=== PATIENT | female | born 1960 | race Caucasian/White ===

== ENCOUNTER → 2017-03-22 | Day surgery (SDC) | payer OTHER ==
--- NOTE | 2017-03-19 12:08 | MH ---
cc: DIMA VELÁZQUEZ M.D. DATE OF ADMISSION: 03/22/2017 CHIEF COMPLAINT: Menorrhagia. HISTORY OF PRESENT ILLNESS: The patient is a 56-year-old white female, G2, P2 with a 6 to 12 months history of much heavier periods this year. No breakthrough bleeding, the periods are not longer then are just significantly heavier. Workup in the office revealed an endometrial biopsy that suggested an endometrial polyp and the recommendations are to have definitive treatment with a MyoSure D&C and the patient would like to proceed with that. PAST MEDICAL HISTORY: Breast cancer in 2010 PAST SURGICAL HISTORY 1. Mastectomy 2. She had an exploratory laparotomy with salpingectomy for ectopic A section SOCIAL HISTORY No tobacco, one drinks per day. No drug use. She is and a business personnel clerks supervisor. FAMILY HISTORY: 1. Metastatic bone cancer 2. Breast cancer. 3. Dementia. GYNECOLOGY HISTORY No abnormal Pap's. No history of STDs. OBSTETRICAL HISTORY Three pregnancies one full term delivery via , one termination and one ectopic. PHYSICAL EXAMINATION: VITAL SIGNS: Her weight is 140, height 5'2", blood pressure 120/74 and pulse of 70. BREASTS: Without masses, nodes or discharge. CHEST: Clear to auscultation bilaterally. CARDIAC: Irregular rate and rhythm without murmur or gallop. ABDOMEN: Soft, nontender, nondistended. No hepatosplenomegaly. No CVA tenderness. No hernias. PELVIC EXAMINATION: The vulva, vagina, normal external female genitalia without lesions. Vaginal vault without lesions. Cervix without lesions. Uterus palpates normal size. It is nontender. No adnexal masses LABORATORY FINDINGS: Laboratory values on the patient are as I discussed in the history of present illness. ASSESSMENT AND PLAN: Includes menorrhagia with a biopsy suspicious for polyps. Plan will be for a MyoSure D&C. MD WOOD Andersen/ /11:47 AM /11:53 AM
[~2017-03-22] VITALS: Ht 157.5 cm; Wt 67.2 kg
[~2017-03-22] MED LIST: ACETAMINOPHEN 1000 MG/100 ML VIAL IV ONE; APREPITANT 40 MG CAP ONE; CETI10 PO; CHLORHEXIDINE GLUCONATE 2 % 1 PACK (2 CLOTHS) TOPICAL PRN; DEXAMETHASONE SOD PHOS 4 MG/ML VIAL ONE; DEXTROSE 5% IV PUSH PRN; DICLOFENAC SODIUM 37.5 MG/ML VIAL IV PUSH ONE; FAMOTIDINE 20 MG/2 ML VIAL ONE; INSULIN HUMAN REGULAR 1,000 UNITS/10 ML VIAL SQ PRN; KETOROLAC TROMETHAMINE 30 MG/ML (IVP) VIAL IV PUSH ONE; LACTATED RINGER'S 1000 ML IV PRN; LEVO25TA4 PO; LIDOCAINE 1%/EPINEPHrine 1:100,000 SOLN 20 ML VIAL ONE; METOPROLOL TARTRATE 25 MG TAB PO PRN; MIDAZOLAM HCL 2 MG/2 ML VIAL ONE; MONT10TA4 PO; ONDANSETRON HCL 4 MG/2 ML VIAL IV PUSH ONE; ONDANSETRON HCL 4 MG/2 ML VIAL ONE; ONDANSETRON IV PUSH PRN; PROPOFOL 200 MG/20 ML AMP IV ONE; SODIUM CHLORID 0.9% 500 ML IV PRN; VITA500T49 PO; WATER IV PUSH PRN; fentaNYL CITRATE 250 MCG/5 ML AMP ONE; oxyCODONE/ACETAMINOPHEN 5 MG/325 MG TAB PO PRN
[2017-03-22 06:54] VITALS: BP 116/73; PULSE 63; RESP 20; TEMP 98.3; O2SAT 100
[2017-03-22 08:04] LABS: BETA HCG QUANT LESS THAN 1 MIU/ML (0-5)
[2017-03-22 10:05] VITALS: BP 109/64; PULSE 63; RESP 16; TEMP 97.9; O2SAT 100
--- NOTE | 2017-03-22 14:41 | EKG ---
Date Performed: 03/22/2017 Time Performed: 07:01:02 PTAGE: 56 years EKG: Sinus rhythm LOW QRS VOLTAGE IN PRECORDIAL LEADS Compared to prior tracing no significant change BORDERLINE ECG PREVIOUS TRACING : 07/21/2012 07.01 DOCTOR: Manny Che Interpretating Date/Time 03/22/2017 14:39:17
--- NOTE | 2017-03-23 12:15 | MP ---
cc: DIMA VELÁZQUEZ M.D. DATE OF SURGERY: 03/22/2017 PREOPERATIVE DIAGNOSIS Menorrhagia with suspected polyp on endometrial biopsy. POSTOPERATIVE DIAGNOSIS Menorrhagia with suspected polyp on endometrial biopsy. PROCEDURE PERFORMED MyoSure dilatation and curettage. OPERATING SURGEON Dr. Dima Velázquez. ANESTHESIA General by facemask. FINDINGS IN SURGERY Included two endometrial polyps noted. No other findings. COMPLICATIONS None. BLOOD LOSS Minimal. PROCEDURE IN DETAIL After proper consents were obtained, the patient was taken to the operating room where general by facemask anesthesia was applied. She was then placed in dorsolithotomy position, sterilely prepped and draped. A weighted speculum was placed in her vaginal vault. The anterior lip of the cervix was grasped with a single-tooth tenaculum. Uterus was sounded to about 7 cm and then the cervix was serially dilated with Elsi dilators up to about #22. We then placed the hysteroscope using normal saline as the distending medium and inspected the cavity which revealed two polyps, one in the right cornual region and one coming from the anterior wall. We used our MyoSure device to remove that under direct visualization without any difficulty. Once we were done the cavity was entirely empty. We removed our instruments. Counts were correct. Hemostasis was assured and the patient was stable to the recovery room. MD WOOD Andersen/TLL /8:49 AM /12:11 PM
== END | disposition home or self-care (01) ==
LOC: HSDC 06:19
PROVIDERS: ATTEND Obstetrics & Gynecology
DX: N84.0 Polyp of corpus uteri (principal); N92.0 Excessive and frequent menstruation with regular cycle; E03.9 Hypothyroidism, unspecified; Z85.3 Personal history of malignant neoplasm of breast; Z90.79 Acquired absence of other genital organ(s); Z91.041 Radiographic dye allergy status; Z85.830 Personal history of malignant neoplasm of bone
CPT/HCPCS: 58558; 84702; 88305; 93005; J0131; J1100; J1130; J2250; J2405; J3010; J7120; J8501